=== PATIENT | male | born 1980 | race Caucasian/White ===

== ENCOUNTER 2017-12-25 17:36 | Emergency (ER) | payer SELFPAY ==
[~2017-12-25] VITALS: Ht 175.3 cm; Wt 80.0 kg
[~2017-12-25 17:36] MED LIST: BACT800T5 PO; DOXY100T PO; MUPI2%T TOP
[2017-12-25 17:37] VITALS: BP 131/85; PULSE 113; RESP 14; TEMP 98.2; O2SAT 97
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
--- NOTE | 2017-12-25 21:24 | RADRPT ---
EXAM DATE/TIME: 12/25/2017 21:01 [facility] COMPARISON: No previous studies available for comparison. INDICATIONS : Left sided facial pain due to fall. RADIATION DOSE: 46.72 CTDIvol (mGy) MEDICAL HISTORY : None SURGICAL HISTORY : None. ENCOUNTER: Initial ACUITY: 1 day PAIN SCORE: 8/10 LOCATION: Left orbits TECHNIQUE: Volumetric scanning of the facial bones was performed. Using automated exposure control and adjustme nt of the mA and/or kV according to patient size, radiation dose was kept as low as reasonably achiev able to obtain optimal diagnostic quality images. DICOM format image data is available electronicall y for review and comparison. FINDINGS: ORBITS: The orbital and infraorbital osseous structures are intact. The retroconal structures have a normal configuration. No radiopaque foreign bodies are seen. NASAL BONE: Slightly comminuted bilateral nasal bone fractures. Deviated bony nasal septum to the left. ZYGOMATIC ARCHES: Symmetric without evidence of fracture. SINUSES: The maxillary, ethmoid and frontal sinuses are intact. Mild mucoperiosteal thickening of the inferio r left maxillary, right sphenoid and bilateral ethmoid sinuses. No air-fluid levels seen. NASAL CAVITY: The nasal septum is intact and midline. The lacrimal ducts are intact. SOFT TISSUES: No radiopaque foreign bodies seen. No soft-tissue swelling is seen. INTRACRANIAL: No intracranial air seen. CRIBIFORM PLATE: Grossly intact. CONCLUSION: 1. Slightly comminuted bilateral nasal bone fractures with deviation of the bony nasal septum to the left. 2. Mild paranasal sinus mucosal disease. Warren Duong MD on December 25, 2017 at 21:20 Board Certified Radiologist. This report was verified electronically.
[2017-12-25] MEDS ORDERED: AUGM500T7 PO (21:50)
[2017-12-25] MEDS ORDERED: PRED-503 PO (21:50)
== END 2017-12-25 22:17 | disposition home or self-care (01) ==
LOC: NEPD 17:36
DX: S02.2XXA Fracture of nasal bones, initial encounter for closed fracture (principal); F17.200 Nicotine dependence, unspecified, uncomplicated; F12.90 Cannabis use, unspecified, uncomplicated; Y00.XXXA Assault by blunt object, initial encounter
CPT/HCPCS: 70486